=== PATIENT | female | born 1995 | race African-American/Black ===

== ENCOUNTER 2018-10-27 14:30 | Emergency (ER) | payer MEDICAID ==
[~2018-10-27] VITALS: Ht 162.6 cm; Wt 89.0 kg
[2018-10-27 15:25] LABS: CLARITY URINE CLOUDY (CLEAR); COLOR URINE YELLOW (YELLOW); KETONES URINE TRACE (NEGATIVE); LEUKOCYTE ESTERASE URINE 1+ (NEGATIVE); NITRITE URINE NEGATIVE (NEGATIVE); OCCULT BLOOD URINE NEGATIVE (NEGATIVE); PH URINE 6.5 (4.5-8.0); PROTEIN URINE NEGATIVE (NEGATIVE); SPECIFIC GRAVITY URINE 1.029 (1.005-1.030)
[2018-10-27] MEDS ORDERED: NITROFURANTOIN 100MG M/M CAPSULE PO ONE (16:45)
[2018-10-27 17:37] VITALS: BP 122/68
== END 2018-10-27 17:59 | disposition home or self-care (01) ==
LOC: ER 14:30
DX: F41.1 Generalized anxiety disorder (principal); N30.00 Acute cystitis without hematuria
CPT/HCPCS: 81025; 93005; 99284

== ENCOUNTER 2020-06-28 12:17 | Emergency (ER) | payer MEDICAID ==
[~2020-06-28] VITALS: Ht 162.6 cm; Wt 90.0 kg
[2020-06-28 13:32] LABS: CLARITY URINE CLOUDY (CLEAR); COLOR URINE YELLOW (YELLOW); KETONES URINE NEGATIVE (NEGATIVE); LEUKOCYTE ESTERASE URINE TRACE (NEGATIVE); NITRITE URINE NEGATIVE (NEGATIVE); OCCULT BLOOD URINE NEGATIVE (NEGATIVE); PH URINE 6.5 (4.5-8.0); PROTEIN URINE NEGATIVE (NEGATIVE); SPECIFIC GRAVITY URINE 1.019 (1.005-1.030)
[2020-06-28 13:37] VITALS: BP 126/67
== END 2020-06-28 14:13 | disposition home or self-care (01) ==
LOC: ER 12:17
DX: N91.2 Amenorrhea, unspecified (principal); N39.0 Urinary tract infection, site not specified
CPT/HCPCS: 81003; 81025; 99283

== ENCOUNTER 2020-11-23 17:08 | Emergency (ER) | payer MEDICAID ==
[~2020-11-23] VITALS: Ht 162.6 cm; Wt 85.0 kg
[2020-11-23] MEDS ORDERED: IBUPROFEN 600MG TABLET PO ONE (18:45)
[2020-11-23] MEDS ORDERED: IBUP-2028 MT (19:41)
[2020-11-23 20:15] VITALS: BP 128/87
== END 2020-11-23 20:28 | disposition home or self-care (01) ==
LOC: ER 17:08
DX: R07.9 Chest pain, unspecified (principal)
CPT/HCPCS: 71045; 81025; 93005; 99283